=== PATIENT | male | born 1940 | race Caucasian/White ===

== ENCOUNTER → 2022-05-30 | Outpatient (CLI) | payer MEDICARE ==
--- NOTE | 2022-05-30 12:02 | Diagnostic Imaging Report ---
PROCEDURE: CT abdomen and pelvis without contrast. TECHNIQUE: Multiple contiguous axial images were obtained through the abdomen and pelvis without the use of intravenous contrast. Auto Exposure Controls were utilized during the CT exam to meet ALARA standards for radiation dose reduction. INDICATION: Newly diagnosed prostate carcinoma. There are punctate nodules which appear to be related to the minor fissure in the visualized lower right lung. These measure up to 0.3 cm in size. There is dense coronary artery calcification. The descending thoracic aorta is tortuous. Below the diaphragm, there is no evidence of focal hepatic, gallbladder or pancreatic lesion. There is no significant biliary ductal dilatation. There is no evidence of adrenal gland or splenic lesion. There are several nonobstructing calculi present within the kidneys bilaterally. Largest stones in the upper pole of the right kidney reach 0.4 cm in size with stone in the inferior pole of the left kidney reaching 0.5 cm. Right main renal artery courses along the anterior margin of the right renal pelvis and results in distortion, however there is no significant hydronephrosis. Dominant cyst in the upper pole of the left kidney measures up to 6.3 cm in diameter with possible subcentimeter cyst in the mid and lower portions of the right kidney. There is no evidence of abdominal mesenteric or central retroperitoneal adenopathy. There is mild aortoiliac atherosclerotic calcification. Surgical clips are seen in the left common iliac region. Unenhanced images of the bladder reveal no abnormality. No discrete prostate or seminal vesicle lesion is identified. There is surgical anastomosis at the sigmoid colon. There is subcentimeter lymph node in the left external iliac chain. There is no focal lytic or sclerotic osseous lesion. There is appearance spondylolysis on the right at L4-L5 with marked L4-L5 disc space narrowing, sclerosis and endplate spurring and advanced L4-L5 degenerative facet arthropathy. IMPRESSION: Tiny pleural-based nodules in the right midlung are nonspecific and could be related to scarring. Below the diaphragm note is made of bilateral nephrolithiasis without evidence of obstructive uropathy. Advanced degenerative findings are seen in the lumbar spine without evidence of osseous metastatic disease or other indication of metastatic prostate cancer. Dictated by: Dictated on workstation # [id number]
--- NOTE | 2022-05-30 15:32 | Diagnostic Imaging Report ---
Exam: Nuclear medicine whole body bone scan. Date: May 30, 2022. Indication: 82-year-old male, history of prostate cancer. Evaluation for bone metastasis. Comparison: CT abdomen and pelvis May 30, 2022. Findings: There is radiotracer uptake at the level of the cervical spine which is most likely degenerative related. There is degenerative related radiotracer uptake at the level of both knees. There is radiotracer uptake in the region of the left ankle in the bilateral mid feet which also may reflect arthritis. There is no identified radiotracer avid lesion specifically concerning for a site of osteoblastic bone metastasis. Impression: 1. No nuclear medicine evidence of an osteoblastic bone metastasis. Dictated by: Dictated on workstation # [id number]
== END ==
LOC: CARD 10:32
PROVIDERS: ATTEND Urology
DX: N20.0 Calculus of kidney (principal); M47.816 Spondylosis without myelopathy or radiculopathy, lumbar region; R91.8 Other nonspecific abnormal finding of lung field; Z85.3 Personal history of malignant neoplasm of breast
CPT/HCPCS: 74176; 78306; A9503

== ENCOUNTER 2022-06-24 09:56 | Outpatient (RCR) | payer MEDICARE | END 2022-07-07 | disposition home or self-care (01) | LOC: ONC 09:56 | PROVIDERS: ATTEND Internal Medicine Hematology & Oncology | DX: C61 Malignant neoplasm of prostate (principal) | CPT/HCPCS: 99204; 99205 ==

== ENCOUNTER 2022-09-10 05:30 | Outpatient (CLI) | payer MEDICARE ==
[~2022-09-10] VITALS: Ht 165.1 cm; Wt 91.0 kg
[2022-09-16] MEDS ORDERED: LOSA100T3 PO (12:14)
[2022-09-16] MEDS ORDERED: TMSL.4C PO (12:14)
[2022-09-16] MEDS ORDERED: MTP25TSR PO (12:14)
[2022-09-16] MEDS ORDERED: OMEP-401 PO (12:14)
[2022-09-16] MEDS ORDERED: MEGE20TA3 PO (12:14)
[2022-09-16] MEDS ORDERED: LEUP22.56 SQ (12:14)
[2022-09-16] MEDS ORDERED: LEVO25TA5 PO (12:14)
== END 2022-09-16 16:49 | disposition home or self-care (01) ==
LOC: PREOP 05:30
PROVIDERS: ATTEND Radiology Radiation Oncology
DX: Z01.818 Encounter for other preprocedural examination (principal)

== ENCOUNTER 2022-09-17 06:06 | Day surgery (SDC) | payer MEDICARE ==
[~2022-09-17] VITALS: Ht 165.1 cm; Wt 91.0 kg
[2022-09-17] VITALS (8 sets, daily range): BP systolic 116–139; BP diastolic 55–86
[~2022-09-17 06:06] MED LIST: LEUP22.56 SQ; LEVO25TA5 PO; LOSA100T3 PO; MEGE20TA3 PO; MTP25TSR PO; OMEP-401 PO; TMSL.4C PO
--- NOTE | 2022-09-17 06:52 | Progress Note-Pre Operative ---
Pre-Operative Progress Note Date of Available H&P: Sep 09, 2022 Date H&P Reviewed: Sep 17, 2022 Time H&P Reviewed: 06:52 Changes from last HP see attached H&P Pre-Operative Diagnosis: Prostate cancer cT2c, PSA 9, [place] 9-10 / GG 5 LISY NICHOLAS MD Sep 17, 2022 06:52
--- NOTE | 2022-09-17 06:55 | Discharge Inst-Simple/Standard ---
Discharge Inst-Standard Reconcile Patient Problems Problems Reviewed?: Yes Discharge Medications New, Converted or Re-Newed RX: Other (Patient has antibiotic at home with instructions.) Patient Instructions/Follow Up Plan of Care/Instructions/FU: Treatment planning CT scan at [facility] cancer center 09/30/22 at 1:00 pm Activity as Tolerated: Yes Discharge Diet: No Restrictions LISY NICHOLAS MD Sep 17, 2022 06:55
[2022-09-17] MEDS ORDERED: fentaNYL INJ 100 MCG/2 ML AMP ONE (07:11)
[2022-09-17] MEDS ORDERED: LACTATED RINGERS 1,000 ML IV PRN (07:15)
[2022-09-17] MEDS ORDERED: LIDOCAINE PF 2% 5 ML (XYLOCAINE) VIAL ONE (07:52)
[2022-09-17] MEDS ORDERED: ONDANSETRON 4 MG/2 ML (SDV) Z0FRAN ONE (07:52)
[2022-09-17] MEDS ORDERED: proPOfol 200 MG/20 ML (DIPRIVAN) VIAL IV ONE (07:52)
[2022-09-17] MEDS ORDERED: SEVOFLURANE (ULTANE) 15 ML INHAL SOLN ONE (08:21)
--- NOTE | 2022-09-17 08:29 | Anesthesia-General Post-Op ---
General Patient Condition Mental Status/LOC: Same as Preop Cardiovascular: Satisfactory Nausea/Vomiting: Absent Respiratory: Satisfactory Pain: Controlled Complications: Absent Post Op Complications Complications None Follow Up Care/Instructions Patient Instructions None needed. Anesthesia/Patient Condition Patient Condition Patient is doing well, no complaints, stable vital signs, no apparent adverse anesthesia problems. No complications reported per nursing. JEANETTE AUSTIN CRNA Sep 17, 2022 08:29
[2022-09-17] MEDS ORDERED: ONDANSETRON 4 MG/2 ML (SDV) Z0FRAN IVP PRN (08:30)
[2022-09-17] MEDS ORDERED: fentaNYL INJ 100 MCG/2 ML AMP IVP ONE (08:30)
--- NOTE | 2022-09-17 08:59 | Progress Note-Post Operative ---
Post-Operative Progess Note Surgeon (s)/Supervisor Asbestos Removal (s) Surgeon LISY NICHOLAS MD Supervisor Asbestos Removal: N/A Pre-Operative Diagnosis Prostate cancer cT2c, PSA 9, [place] 9-10 / GG 5 Post-Operative Diagnosis Same as preop Procedure & Operative Findings Date of Procedure 09/17/22 Procedure Performed/Findings (1) Injection of biodegradable prostate-rectal spacer utilizing the Barrigel system Anesthesia Type General Estimated Blood Loss Estimated blood loss (mL): minimal Specimens/Packing Specimens Removed None Packing: None LISY NICHOLAS MD Sep 17, 2022 08:59
== END 2022-09-17 09:46 | disposition home or self-care (01) ==
LOC: SDC 06:06
PROVIDERS: ATTEND Radiology Radiation Oncology
DX: C61 Malignant neoplasm of prostate (principal); E66.9 Obesity, unspecified; Z68.33 Body mass index [BMI] 33.0-33.9, adult
CPT/HCPCS: 87081

== ENCOUNTER → 2022-10-07 | Outpatient (RCR) | payer MEDICARE ==
[~2022-10-07] MED LIST changes: +LEUPROLIDE 22.5 MG SYRINGE (ELIGARD) SQ SCH
== END | disposition home or self-care (01) ==
LOC: ONC 09-10 10:50
PROVIDERS: ATTEND Internal Medicine Hematology & Oncology
DX: Z51.0 Encounter for antineoplastic radiation therapy (principal); C61 Malignant neoplasm of prostate
CPT/HCPCS: 84153; 96402; G0463; 77300; 77301; 77334; 77338; 77385

== ENCOUNTER → 2022-11-04 | Outpatient (RCR) | payer MEDICARE ==
[~2022-11-04] MED LIST changes: -LEUPROLIDE 22.5 MG SYRINGE (ELIGARD) SQ SCH
== END | disposition home or self-care (01) ==
LOC: ONC 10-08 10:26
PROVIDERS: ATTEND Internal Medicine Hematology & Oncology
DX: Z51.0 Encounter for antineoplastic radiation therapy (principal); C61 Malignant neoplasm of prostate; I10 Essential (primary) hypertension; K21.9 Gastro-esophageal reflux disease without esophagitis; E03.9 Hypothyroidism, unspecified
CPT/HCPCS: 77336; 77385

== ENCOUNTER → 2022-12-05 | Outpatient (RCR) | payer MEDICARE ==
[2022-12-03 11:11] LABS: BASOPHILS % (AUTO) 1 % (0-10); EOSINOPHILS # (AUTO) 0.2 10^3/uL (0.0-0.3); EOSINOPHILS % (AUTO) 5 % (0-10); HEMATOCRIT 36 % (40-54); HEMOGLOBIN 12.4 g/dL (13.3-17.7); LYMPHOCYTES # (AUTO) 0.5 10^3/uL (1.0-4.0); LYMPHOCYTES % (AUTO) 12 % (12-44); MEAN CORPUSCULAR HEMOGLOBIN 32 pg (25-34); MEAN CORPUSCULAR HGB CONC 34 g/dL (32-36); MEAN CORPUSCULAR VOLUME 93 fL (80-99); MEAN PLATELET VOLUME 9.3 fL (9.0-12.2); MONOCYTES # (AUTO) 0.5 10^3/uL (0.0-1.0); MONOCYTES % (AUTO) 12 % (0-12); NEUTROPHILS # (AUTO) 2.9 10^3/uL (1.8-7.8); NEUTROPHILS % (AUTO) 70 % (42-75); PLATELET COUNT 217 10^3/uL (130-400); WHITE BLOOD COUNT 4.2 10^3/uL (4.3-11.0)
[2022-12-03 11:34] LABS: ALBUMIN 3.6 GM/DL (3.2-4.5); BILIRUBIN,TOTAL 0.3 MG/DL (0.1-1.0); CALCIUM 8.7 MG/DL (8.5-10.1); CREATININE SERUM 0.81 MG/DL (0.60-1.30); POTASSIUM 3.8 MMOL/L (3.6-5.0)
[~2022-12-05] MED LIST changes: +LEUPROLIDE 22.5 MG SYRINGE (ELIGARD) SQ SCH; -LOSA100T3 PO; +LOSA100T4 PO
== END | disposition home or self-care (01) ==
LOC: ONC 11-05 10:32
PROVIDERS: ATTEND Internal Medicine Hematology & Oncology
DX: C61 Malignant neoplasm of prostate (principal)
CPT/HCPCS: 36415; 77300; 77336; 77385; 80053; 84153; 85025; 96402

== ENCOUNTER 2022-12-10 10:21 | Outpatient (RCR) | payer MEDICARE, OTHER ==
[~2022-12-10 10:21] MED LIST changes: -LEUPROLIDE 22.5 MG SYRINGE (ELIGARD) SQ SCH
== END 2023-01-04 | disposition home or self-care (01) ==
LOC: ONC 10:21
PROVIDERS: ATTEND Internal Medicine Hematology & Oncology
DX: Z51.0 Encounter for antineoplastic radiation therapy (principal); C61 Malignant neoplasm of prostate
CPT/HCPCS: 77336; 77385

== ENCOUNTER 2023-02-25 10:29 | Outpatient (RCR) | payer MEDICARE, OTHER ==
[~2023-02-25 10:29] MED LIST changes: +LEUPROLIDE 22.5 MG SYRINGE (ELIGARD) SQ SCH
== END 2023-03-06 | disposition home or self-care (01) ==
LOC: ONC 10:29
PROVIDERS: ATTEND Internal Medicine Hematology & Oncology
DX: C61 Malignant neoplasm of prostate (principal)
CPT/HCPCS: 36415; 84153